=== PATIENT | male | born 1970 | race Caucasian/White ===

== ENCOUNTER → 2019-10-11 11:49 | Outpatient (BNVA) | payer OTHER, SELFPAY | PROVIDERS: Family Provider Family Medicine; Referring Provider Nurse Practitioner; Visit Provider Specialist | DX: M25.561 Pain in right knee (principal) | CPT/HCPCS: 73560; 73565 ==

== ENCOUNTER 2020-01-08 10:34 | Outpatient (CLI) | payer OTHER, SELFPAY ==
--- NOTE | 2020-01-08 11:05 | MR_ITS ---
WS: [id number] MRI RIGHT KNEE NONCONTRAST TECHNIQUE: Axial PD, coronal PD fat sat, coronal PD, sagittal PD, and sagittal PD fat-sat images obta ined. CLINICAL INFORMATION: CHRONIC PAIN OF RIGHT KNEE COMPARISON: Comparison March 09, 2017 FINDINGS: Distal quadriceps and patella tendons are intact. Anterior and posterior cruciate ligaments appear in tact. Small suprapatellar effusion. Small lobulated popliteal cyst measuring 1.3 x 0.8 x 3.1 CM. Principal Archaeologist evan thinning of the lateral meniscus which otherwise appears unremarkable. More advanced chronic thin loreta of the medial meniscus with chronic intrasubstance signal abnormality. No acute appearing menisc al tears. Degenerative subchondral edema along the anterior medial tibial plateau. 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 Advanced chondromalacia patella with a small amount of subchondral edema. Me dial and lateral collateral ligaments appear intact. MR/MR knee RT wo con* [id number] IMPRESSION: 1. Anterior and posterior cruciate ligaments are intact. 2. Chronic thinning of both the medial and lateral meniscus worse involving th e medial meniscus with chronic intrasubstance signal abnormality. No acute appe aring meniscal tears. 3. Advanced chondromalacia patella progressed from 2017 with subchondral edema . 4. Small joint effusion. 5. Moderate chondromalacia involving the medial and lateral joint compartments appears progressed since 2017. 6. Small amount of degenerative subchondral edema along the anteromedial tibia l plateau. 7. Small popliteal cyst as described above.
== END 2020-01-08 10:35 | disposition home or self-care (01) ==
LOC: RADWPI 10:42
PROVIDERS: Family Provider Family Medicine; PCP Nurse Practitioner; Visit Provider Specialist
DX: G89.29 Other chronic pain (principal); M22.41 Chondromalacia patellae, right knee; M25.461 Effusion, right knee; R60.9 Edema, unspecified; M71.21 Synovial cyst of popliteal space [Baker], right knee
CPT/HCPCS: 73721

== ENCOUNTER 2021-04-08 07:26 | Outpatient (CLI) | payer OTHER, SELFPAY ==
[2021-04-08 07:48] VITALS: BP 170/89; PULSE 67; RESP 18; TEMP 36.7; O2SAT 99
[2021-04-08 08:09] VITALS: BP 137/90; PULSE 65; RESP 14; O2SAT 95
[2021-04-08 09:25] VITALS: BP 136/85; PULSE 62; RESP 16; TEMP 36.8; O2SAT 96
== END 2021-04-08 07:27 | disposition home or self-care (01) ==
LOC: OPS 07:32
PROVIDERS: PCP Nurse Practitioner; Visit Provider Nurse Practitioner
DX: U07.1 COVID-19 (principal)
CPT/HCPCS: 96365

== ENCOUNTER → 2021-04-30 10:58 | Outpatient (BNVA) | payer OTHER, SELFPAY | PROVIDERS: PCP Nurse Practitioner; Visit Provider Internal Medicine Rheumatology | DX: M15.9 Polyosteoarthritis, unspecified (principal); Z79.899 Other long term (current) drug therapy; Z11.59 Encounter for screening for other viral diseases; Z11.1 Encounter for screening for respiratory tuberculosis; Z71.89 Other specified counseling; Z87.891 Personal history of nicotine dependence | CPT/HCPCS: 99204 ==

== ENCOUNTER → 2021-05-27 13:45 | Outpatient (BNVA) | payer OTHER, SELFPAY | PROVIDERS: PCP Nurse Practitioner; Visit Provider Internal Medicine Rheumatology | DX: M19.90 Unspecified osteoarthritis, unspecified site (principal); Z11.59 Encounter for screening for other viral diseases; Z79.899 Other long term (current) drug therapy; Z11.1 Encounter for screening for respiratory tuberculosis | CPT/HCPCS: 36415; 80076; 82306; 82565; 85025; 85651; 86140; 86200; 86480; 86704; 86803; 87340 ==

== ENCOUNTER → 2021-06-15 09:08 | Outpatient (BNVA) | payer OTHER, SELFPAY | PROVIDERS: PCP Nurse Practitioner; Visit Provider Internal Medicine Rheumatology | DX: M15.9 Polyosteoarthritis, unspecified (principal); Z79.899 Other long term (current) drug therapy; Z71.89 Other specified counseling; Z87.891 Personal history of nicotine dependence | CPT/HCPCS: 99214 ==

== ENCOUNTER 2021-07-16 06:51 | Outpatient (CLI) | payer OTHER, SELFPAY ==
--- NOTE | 2021-07-16 07:15 | USCV_ITS ---
Fredy Rebollar Age: 50 Gender: M : 1970 Exam Date: 07/16/2021 07:07 Ordering Phys: Sandy Johns MD ([email or web address]) Technologist: Exam Location: [facility] [place] Indication: PRIMARY HTN Aortic Velocity @ SMA (cm/s) 131 RIGHT KIDNEY LEFT KIDNEY Velocity (cm/s) Velocity (cm/s) Sys/Myrick Sys/Myrick Resistive Index Resistive Index 121.8 / 32.7 0.73 Proximal Renal Artery 56.2 / 20.0 0.64 98.5 / 25.5 0.74 Mid Renal Artery 60.1 / 18.9 0.69 70.4 / 25.5 0.64 Distal Renal Artery 54.5 / 17.2 0.68 71.2 / 16.7 0.77 Hilar 62.4 / 24.4 0.61 42.2 / 12.3 0.71 Upper Pole 44.5 / 18.9 0.58 58.9 / 17.6 0.70 Mid Pole 24.4 / 6.5 0.73 55.4 / 19.3 0.65 Lower Pole 44.5 / 12.0 0.73 0.90 Renal Aortic Ratio 0.46 Accleration Index (cm/sec2) 1513.0 Hilar 857.00 0 1286.0 Upper Pole 770.00 0 1696.0 Mid Pole 1053.0 0 0 1821.0 Lower Pole 458.00 0 122.7 Kidney Length (mm) 111.9 CONCLUSIONS Grayscale and duplex color Doppler of the kidneys. The duplex Doppler waveforms for both main renal arteries and segmental renal arteries appear within normal limits. No evidence of tardus parvus waveforms. The bilateral main and segmental renal arteries are patent. No significant renal artery stenosis. Nathaniel George MD (Electronically Signed) Final Date: 16 July 2021 13:34 S
== END 2021-07-16 06:52 | disposition home or self-care (01) ==
LOC: US 06:53
PROVIDERS: PCP Nurse Practitioner; Visit Provider Internal Medicine Cardiovascular Disease
DX: I10 Essential (primary) hypertension (principal)
CPT/HCPCS: 93975

== ENCOUNTER → 2021-12-21 11:08 | Outpatient (BNVA) | payer OTHER, SELFPAY | PROVIDERS: PCP Nurse Practitioner; Visit Provider Internal Medicine Rheumatology | DX: M06.041 Rheumatoid arthritis without rheumatoid factor, right hand (principal); M06.042 Rheumatoid arthritis without rheumatoid factor, left hand; Z79.899 Other long term (current) drug therapy; Z71.89 Other specified counseling | CPT/HCPCS: 99214 ==

== ENCOUNTER → 2021-12-28 13:06 | Outpatient (BNVA) | payer OTHER, SELFPAY | PROVIDERS: PCP Nurse Practitioner; Visit Provider Internal Medicine Cardiovascular Disease | DX: I10 Essential (primary) hypertension (principal); F17.290 Nicotine dependence, other tobacco product, uncomplicated | CPT/HCPCS: 99213 ==

== ENCOUNTER → 2022-01-26 10:10 | Outpatient (BNVA) | payer OTHER, SELFPAY | PROVIDERS: PCP Nurse Practitioner; Visit Provider Nurse Practitioner Family | DX: I10 Essential (primary) hypertension (principal); F17.290 Nicotine dependence, other tobacco product, uncomplicated | CPT/HCPCS: 99213 ==

== ENCOUNTER → 2022-04-13 10:20 | Outpatient (BNVA) | payer OTHER, SELFPAY | PROVIDERS: PCP Nurse Practitioner; Visit Provider Internal Medicine Rheumatology | DX: M06.041 Rheumatoid arthritis without rheumatoid factor, right hand (principal); M06.042 Rheumatoid arthritis without rheumatoid factor, left hand; I10 Essential (primary) hypertension; Z71.89 Other specified counseling; Z79.899 Other long term (current) drug therapy | CPT/HCPCS: 99214 ==

== ENCOUNTER → 2022-07-05 14:32 | Outpatient (BNVA) | payer OTHER, SELFPAY | PROVIDERS: PCP Nurse Practitioner; Visit Provider Internal Medicine Rheumatology | DX: M06.041 Rheumatoid arthritis without rheumatoid factor, right hand (principal); M06.042 Rheumatoid arthritis without rheumatoid factor, left hand; Z79.899 Other long term (current) drug therapy; Z71.89 Other specified counseling | CPT/HCPCS: 99214 ==

== ENCOUNTER → 2022-07-26 10:37 | Outpatient (BNVA) | payer OTHER, SELFPAY | PROVIDERS: PCP Nurse Practitioner; Visit Provider Nurse Practitioner Family | DX: I10 Essential (primary) hypertension (principal) | CPT/HCPCS: 99213 ==

== ENCOUNTER → 2023-04-20 12:50 | Outpatient (BNVA) | payer OTHER, SELFPAY | PROVIDERS: PCP Nurse Practitioner; Referring Provider Nurse Practitioner; Visit Provider Dermatology | DX: L82.1 Other seborrheic keratosis (principal); D22.5 Melanocytic nevi of trunk; D22.39 Melanocytic nevi of other parts of face; L73.8 Other specified follicular disorders; L81.4 Other melanin hyperpigmentation; L57.3 Poikiloderma of Civatte; F17.210 Nicotine dependence, cigarettes, uncomplicated | CPT/HCPCS: 99203 ==

== ENCOUNTER 2023-07-11 09:55 | Emergency (ER) | payer OTHER, SELFPAY ==
[2023-07-11 10:20] VITALS: BP 162/99; PULSE 65; RESP 16; TEMP 36.7; O2SAT 98; BMI 34.0
--- NOTE | 2023-07-11 10:32 | CT_ITS ---
WS: [id number] CT ABDOMEN PELVIS TECHNIQUE: Noncontrast CT of the abdomen and pelvis with coronal and sagittal reformatted images. CLINICAL INFORMATION: R flank/abdominal pain COMPARISON: None. DLP: 986.[address] scans at [facility] use at least one of these dose optimization techniques: automated e xposure control; mA and/or kV adjustment per patient size (includes targeted exams where dose is matc hed to clinical indication); or iterative reconstruction. FINDINGS: Adrenal glands are normal. No hydronephrosis in either kidney. No obstructing renal or ureteral calcu li bilaterally. No hydronephrosis. Normal appendix in the RIGHT lower quadrant. Normal sigmoid colon. No evidence of high-grade small or large bowel obstruction. Fat-containing umbi lical hernia. Lung bases are well aerated. Noncontrast spleen is normal. Tiny esophageal hernia. Patc hy low-attenuation change in the liver likely due to fatty infiltration. This can be further evaluate d with ultrasound. Cholelithiasis. No gallbladder wall thickening or pericholecystic fluid. IMPRESSION: 1. No hydronephrosis in either kidney. No obstructing renal or ureteral calculi. 2. Normal appendix. No evidence of acute appendicitis. 3. Normal sigmoid colon. 4. Patchy attenuation in the liver likely due to geographic fatty infiltration. This can be further evaluated with ultrasound or contrast-enhanced CT abdomen pelvis. Recommend correlation with liver fu nction tests. 5. Cholelithiasis. No gallbladder wall thickening or pericholecystic fluid. 6. No other acute findings.
--- NOTE | 2023-07-11 10:34 | W.ED.BACK ---
HPI - Back Pain/Injury General: Chief Complaint: Abdominal Pain Stated Complaint: abd pain,urinary problems,va sent Time Seen by Provider: 07/11/23 10:24 Source: patient Mode of arrival: ambulatory Limitations: no limitations History of Present Illness: Patient is a nice 52-year-old male who [facility] Patient states approximately 3 days ago he began having pains to his right flank area. He states over time symptoms seem to radiate around into his abdomen. He at one point felt febrile. He states one evening he seemed to have some difficulty with defecation. He states he has never had any difficulty with urination, denies frequency, urgency, hesitancy, hematuria. Denies N/V. No prior history of nephroureterolithiasis. Patient states pain is minimal at this time but reports a high pain tolerance. MD elicited complaint: back pain Onset (ago): day(s) Timing: constant Severity: mild Similar Symptoms Previously: No Quality: sharp Location: right flank Radiation: abdomen Exacerbating factors: movement Relieving factors: none Associated symptoms: Reports abdominal pain, change in bowel habits (reported difficulty with BM for a day) and fever(s) (subjective-only present one evening); Deny chills, difficulty walking, dysuria, fatigue, hematuria, nausea, syncope, urinary urgency or vomiting Work related injury: No Review of Systems Const: Reports: fever(s) (subjective-only present one evening); Denies: chills, body aches, fatigue or malaise Card: Denies: chest pain, palpitations, edema, lightheadedness, syncope or pre-syncope Resp: Denies: dyspnea GI: Reports: abdominal pain and change in bowel habits (reported difficulty with BM for a day); Denies: nausea, vomiting, hematemesis, diarrhea, GI cramping, hematochezia or melena : Reports: flank pain; Denies: difficulty urinating, dysuria, urinary frequency, urinary urgency, urinary hesitancy, hematuria, testicular pain, testicular mass or scrotal swelling Musc: Reports: back pain; Denies: neck pain, extremity pain, extremity swelling, joint pain or joint swelling Skin/Breast: Denies: rash Neuro: Denies: headache(s), numbness in extremities, weakness in extremities, sensory changes or difficulty walking PFSH ED PFSH: Medical History Bleeding hemorrhoids High risk medication use History of high blood pressure HTN (hypertension) Hypothyroidism Immunization counseling Seronegative rheumatoid arthritis of both hands Surgical History History of colonoscopy History of shoulder surgery Right 1990 Family History Other Hyperlipidemia Denies family history of Rheumatoid arthritis Diabetes Lupus CAD (coronary artery disease) Psoriatic arthritis Chronic kidney disease (CKD) Lung disease Cancer Hypertension Stroke Social History Smoking and tobacco/nicotine status: never used tobacco/nicotine Alcohol intake: current Alcohol intake frequency: holidays/special occasions only Substance/Drug Use: never Physical Exam Const: COMMON NORMALS: no acute distress, patient oriented x3, no limitations, healthy appearing, alert and well nourished Eye: COMMON NORMALS: no scleral icterus Resp: COMMON NORMALS: normal respiratory effort and clear to auscultation bilaterally AUSCULTATION: clear to auscultation bilaterally Cardio: COMMON NORMALS: regular rate and regular rhythm RATE: regular rate RHYTHM: regular rhythm GI: COMMON NORMALS: Normal to inspection, nondistended, normoactive bowel sounds present, Soft to palpation, No hepatosplenomegaly present and no masses INSPECTION: Yes normal to inspection AUSCULTATION: Yes normoactive bowel sounds PALPATION: Yes Soft to palpation, Yes Tenderness to palpation present (GI) (mild) Details: RLQ, No Guarding due to palpation present (GI), No Rigid due to palpation and Yes No hepatosplenomegaly present : BLADDER/KIDNEY EXAM: Yes CVA tenderness on the right (mild) Back/Pelvis: COMMON NORMALS: thoracic and lumbar spine normal to inspection, no thoracic nor lumbar tenderness and thoraco-lumbar ROM normal GENERAL BACK: Yes CVA tenderness BACK IMAGE (MALE): 1. TTP Extremity: COMMON NORMALS: normal to inspection GENERAL: Yes normal exam except as noted Neuro: FELISHA COMA SCALE: document GCS findings Lott coma scale eye opening: Spontaneous Lott coma scale verbal response: Orientated Felisha coma scale motor response: Obey commands Felisha coma scale total score: 15 COMMON NORMALS: patient oriented x3, moves all extremities, no focal motor deficits, no sensory deficits noted and gait normal SENSORIUM/ORIENTATION: Yes alert Skin: COMMON NORMALS: no rashes or lesions noted GENERAL SKIN EXAM: no rashes or lesions noted Course Vital Signs: Vital signs: Vital Signs Temperature 98.1 F 07/11/23 10:20 Pulse Rate 65 07/11/23 10:20 Respiratory Rate 16 07/11/23 10:20 Blood Pressure 162/99 07/11/23 10:20 Pulse Oximetry 98 07/11/23 10:20 Oxygen Delivery Me thod Room Air 07/11/23 10:20 MDM - Back Pain/Injury Medical Decision Making Patient appearing in no acute distress. Vital signs are stable. Blood work overall is unremarkable. UA is clear. CT scan is essentially normal. Incidental findings of a small patchy attenuation in his liver most likely due to fatty infiltration. I discussed findings with Dr. George who stated ultrasound of his liver could be ordered on a non-emergent basis. He has normal liver function tests. Cholelithiasis present but no gallbladder wall thickening or pericholecystic fluid. Again LFTs are normal. He has no RUQ tenderness. Patient made aware of findings and plan. At this point I think we have ruled out any emergent or life-threatening etiologies to patient's symptoms. [facility] Return to ED precautions given. Labs 07/11/23 10:32 07/11/23 10:32 Laboratory Results WBC 6.54 10^3/uL (3.29-11.43) 07/11/23 10:32 RBC 5.04 10^6/uL (3.85-5.65) 07/11/23 10:32 Hgb 14.60 g/dL (11.27-16.99) 07/11/23 10:32 Hct 42.6 % (37-53) 07/11/23 10:32 MCV 84.5 fl (82-101) 07/11/23 10:32 MCH 29.0 pg (27-33) 07/11/23 10:32 MCHC 34.3 g/dL (30-55) 07/11/23 10:32 RDW 12.2 % (12.1-15.1) 07/11/23 10:32 Plt Count 259 10^3/cmm (157-399) 07/11/23 10:32 MPV 11.6 fL (7.4-10.4) H 07/11/23 10:32 Neut % (Auto) 53.4 % 07/11/23 10:32 Lymph % (Auto) 32.9 % 07/11/23 10:32 [place] % (Auto) 9.6 % 07/11/23 10:32 Eos % (Auto) 3.1 % 07/11/23 10:32 Baso % (Auto) 0.8 % 07/11/23 10:32 Neut # (Auto) 3.50 10^3/uL (1.8-7.7) 07/11/23 10:32 Lymph # (Auto) 2.2 10^3/uL (0.8-4.8) 07/11/23 10:32 [place] # (Auto) 0.6 10^3/uL (0.2-0.9) 07/11/23 10:32 Eos # (Auto) 0.2 10^3/uL (0.0-0.8) 07/11/23 10:32 Baso # (Auto) 0.1 10^3/uL (0.0-0.1) 07/11/23 10:32 Nucleated RBC % (auto) 0 % 07/11/23 10:32 Nucleated RBCs # 0.0 /100WBC 07/11/23 10:32 Sodium 138 mmol/L (136-145) 07/11/23 10:32 Potassium 3.4 mmol/L (3.5-5.1) L 07/11/23 10:32 Chloride 101 mmol/L (98-107) 07/11/23 10:32 Carbon Dioxide 28 mmol/L (22-29) 07/11/23 10:32 Anion Gap 12.4 (5-19) 07/11/23 10:32 BUN 8 mg/dL (6-20) 07/11/23 10:32 Creatinine 1.1 mg/dL (0.7-1.2) 07/11/23 10:32 GFR Calculation 70.0 mL/min (90-130) L 07/11/23 10:32 Glucose 96 mg/dL (65-115) 07/11/23 10:32 Calculated Osmolality 284 mOsm/kg (285-295) L 07/11/23 10:32 Calcium 9.4 mg/dL (8.5-10.5) 07/11/23 10:32 Total Bilirubin 0.7 mg/dL (0.15-1.2) 07/11/23 10:32 AST 26 U/L (0-40) 07/11/23 10:32 ALT 39 U/L (0-41) 07/11/23 10:32 Alkaline Phosphatase 99 U/L (40-130) 07/11/23 10:32 Total Protein 7.6 g/dL (6.6-8.7) 07/11/23 10:32 Albumin 4.4 g/dL (3.5-5.2) 07/11/23 10:32 Globulin 3.2 g/dL (1.3-4.6) 07/11/23 10:32 Lipase 17 U/L (13-60) 07/11/23 10:32 Urine Color Straw (Yellow) 07/11/23 10:50 Urine Appearance Clear (CLEAR) 07/11/23 10:50 Urine pH 7 (5-7) 07/11/23 10:50 Ur Specific [place] 1.000 (1.005-1.030) L 07/11/23 10:50 Urine Protein Neg (Negative) 07/11/23 10:50 Urine Glucose (UA) Norm (Normal) 07/11/23 10:50 Urine Ketones Negative (Negative) 07/11/23 10:50 Urine Blood Neg (Negative) 07/11/23 10:50 Urine Nitrate Negative (Negative) 07/11/23 10:50 Urine Bilirubin Neg (Negative) 07/11/23 10:50 Urine Urobilinogen Neg mg/dL (Negative) 07/11/23 10:50 Ur Leukocyte Esterase Negative (Negative) 07/11/23 10:50 All radiology interpretation(s) finalized by discharge Discharge Plan Discharge Patient Disposition: Home Clinical Impression: Back pain Qualifiers: Back pain location: back pain in other location Chronicity: acute Qualified Code(s): M54.9 - Dorsalgia, unspecified Condition: Stable Prescriptions: No Action Proair Digihaler 90 mcg/actuation aero powdr breath act w/sensor 90 mcg INHALATION Q6H PRN (Reason: Shortness Of Breath) levothyroxine 150 mcg capsule 150 mcg PO DAILY amlodipine 10 mg tablet 10 mg PO DAILY losartan-hydrochlorothiazide 100-12.5 mg tablet 1 tab PO QAM Discharge Orders: Discharge ED (Routine); Ordered 07/11/23 Ordered By: Adriana Crowley Referrals: Светлана Webb FNP [Primary Care Provider] - Activity Restrictions/Additional Instructions: As we discussed we did not find an exact etiology to your symptoms today. Her blood work shows a normal white count. Remainder of blood work is unremarkable. Your UA was clear. CT scan is essentially normal apart from the incidental findings that we discussed. There was a small patchy attenuation in the liver most likely secondary to fatty infiltration. Radiologist recommended ultrasound on an outpatient basis. Your liver function tests on blood work were normal. CT scan also showing gallstones. There was no secondary findings to suggest cholecystitis. You may return to the emergency department for onset of right upper quadrant abdominal pain, repetitive episodes of vomiting or diarrhea, fevers, yellowing to your skin or eyes, or any other concerns you may have. Otherwise [facility]. I hope you begin to feel better soon. Coding Level of Care Code ED External Relations Manager for [facility] [place]
--- NOTE | 2023-07-11 10:37 | PC.PHAR ---
[facility]XED [facility] 10:30AM 07/11/23
[2023-07-11 10:39] LABS: Basophils # 0.1 10^3/uL (0.0-0.1); Basophils % 0.8 %; Eosinophils # 0.2 10^3/uL (0.0-0.8); Eosinophils % 3.1 %; Hematocrit 42.6 % (37-53); Lymphocytes # 2.2 10^3/uL (0.8-4.8); Lymphocytes % 32.9 %; Mean Corpuscular HGB Conc 34.3 g/dL (30-55); Mean Corpuscular Volume 84.5 fl (82-101); Mean Platelet Volume 11.6 fL (7.4-10.4); Monocytes # 0.6 10^3/uL (0.2-0.9); Monocytes % 9.6 %; Neutrophils % 53.4 %; Nucleated Red Blood Cells % 0 %; Platelet Count 259 10^3/cmm (157-399); Red Blood Count 5.04 10^6/uL (3.85-5.65); Red Cell Distribution Width 12.2 % (12.1-15.1); White Blood Count 6.54 10^3/uL (3.29-11.43)
[2023-07-11 10:56] LABS: Alanine Aminotransferase 39 U/L (0-41); Albumin Level 4.4 g/dL (3.5-5.2); Alkaline Phosphatase 99 U/L (40-130); Anion Gap 12.4 (5-19); Aspartate Amino Transferase 26 U/L (0-40); Blood Urea Nitrogen 8 mg/dL (6-20); Calcium 9.4 mg/dL (8.5-10.5); Carbon Dioxide 28 mmol/L (22-29); Chloride 101 mmol/L (98-107); Globulin 3.2 g/dL (1.3-4.6); Glucose 96 mg/dL (65-115); Lipase 17 U/L (13-60); Osmolality Calculated 284 mOsm/kg (285-295); Potassium 3.4 mmol/L (3.5-5.1); Sodium 138 mmol/L (136-145); Total Bilirubin 0.7 mg/dL (0.15-1.2); Total Protein 7.6 g/dL (6.6-8.7)
[2023-07-11 11:05] LABS: Add Urine Microscopic? NO; Charge for UA Resulting for Rev
[2023-07-11 11:12] LABS: Bilirubin Urine Neg (Negative); Blood Urine Neg (Negative); Glucose Urine UA Norm (Normal); Ketones Urine Negative (Negative); Leukocyte Esterase Urine Negative (Negative); Nitrate Urine Negative (Negative); Protein Urine Neg (Negative); Urine Appearance Clear (CLEAR); Urine Color Straw (Yellow); Urobilinogen Urine Neg (Negative); pH Urine 7 (5-7)
== END 2023-07-11 12:00 | disposition home or self-care (01) ==
PROVIDERS: Emergency Provider Physician Assistant; PCP Nurse Practitioner
DX: M54.9 Dorsalgia, unspecified (principal); I10 Essential (primary) hypertension
CPT/HCPCS: 74176; 80053; 81003; 83690; 85025; 99284

== ENCOUNTER → 2024-05-30 07:52 | Outpatient (BNVA) | payer OTHER, SELFPAY | PROVIDERS: PCP Nurse Practitioner; Referring Provider Nurse Practitioner; Visit Provider Surgery | DX: Z12.11 Encounter for screening for malignant neoplasm of colon (principal) | CPT/HCPCS: 99203; 99214 ==

== ENCOUNTER 2024-06-21 05:40 | Day surgery (SDC) | payer OTHER, SELFPAY ==
--- NOTE | 2024-06-21 06:00 | P.HPUD_ITS ---
Surgery/Procedure H&P Update DATE OF PROCEDURE: June 21, 2024 DATE H&P PERFORMED: 05/30/24 H&P UPDATE INFORMATION: I have reviewed H&P completed within last 30 days, I have examined patient prior to procedure, No changes to prior documentation and [place] [facility] indicated PLANNED PROCEDURE: Operation Date: 06/21/24 07:00 Proposed Procedures p Colonoscopy 38228, G0105, Z12.11(Not Applicable) - Clement Clayton MD
--- NOTE | 2024-06-21 06:00 | W.PM.OPSUD ---
Surgery/Procedure H&P Update DATE OF PROCEDURE: June 21, 2024 DATE H&P PERFORMED: 05/30/24 H&P UPDATE INFORMATION: I have reviewed H&P completed within last 30 days, I have examined patient prior to procedure, No changes to prior documentation and H&P is in [facility] [place] EMR on date indicated PLANNED PROCEDURE: Operation Date: 06/21/24 07:00 Proposed Procedures p Colonoscopy 48918, G0105, Z12.11(Not Applicable) - Clement Clayton MD
[2024-06-21 06:02] VITALS: BP 148/95; PULSE 66; RESP 16; TEMP 36.3; O2SAT 97; BMI 34.4
[2024-06-21] MEDS: sodium chloride 0.9% 1,000 ML 30 ML IV (06:15)
--- NOTE | 2024-06-21 06:58 | P.ANESASSM_ITS ---
Pre-Anesthetic Assessment Height/Weight: Height 1.78 m Weight 108.862 kg Temp Pulse Resp BP Pulse Ox O2 Del Method 97.3 F L 66 16 148/95 97 Room Air 06/21/24 06:02 06/21/24 06:02 06/21/24 06:02 06/21/24 06:02 06/21/24 06:02 06/21/24 06:02 Operation Date: 06/21/24 07:00 Proposed Procedures p Colonoscopy 12944, G0105, Z12.11(Not Applicable) - Clement Clayton MD Familial anesthetic complications: none Was Beta Radha taken within 24 hours: N/A Was Clonidine taken within 24 hours: N/A Last intake: Intake Last Liquid Date 06/20/24 Last Liquid Time 23:00 Last Solid Date 06/19/24 Last Solid Time 18:00 Last Intake: 22:00 Social No alcohol and No tobacco occasional cigar Exam alert and oriented x 3 Airway Submandibular: within normal limits Cervical ROM: within normal limits Mallampati: Class III Dentition: full History/ROS No significant history except as noted Pulmonary Asthma and Sleep Apnea CV/HEM Hypertension None reported Hepatic None reported GI None reported Metabolic Hyperlipidemia and Thyroid Disease [facility] [place] None reported Neuropsych None reported Anesthetic Plan ASA status: 3 Anesthesia: Anesthesia Evaluation, General and MAC Risk of > 500 ml blood loss (7ml/kg in children): No Medications/Allergies Home Medications Medication Instructions Recorded Confirmed Last Taken Type albuterol sulfate 90 mcg/actuation 90 mcg inhalation Q6H PRN 10/11/19 06/21/24 2 Weeks Ago History breath activated powder Shortness Of Breath ~06/05/24 inhaler,sensor (Proair Digihaler) levothyroxine 150 mcg capsule 150 mcg PO DAILY 04/30/21 06/21/24 06/21/24 History amlodipine 10 mg tablet 10 mg PO DAILY 07/26/22 06/21/24 06/21/24 History losartan 100 1 tab PO QAM 07/11/23 06/21/24 06/20/24 History mg-hydrochlorothiazide 12.5 mg tablet clonidine HCl 0.1 mg tablet 0.1 mg PO DAILY 06/19/24 06/21/24 06/20/24 History Allergies Allergy/AdvReac Type Severity Reaction Status Date / Time Penicillins Allergy Severe ALGY-Anaphy Verified 05/30/24 07:59 laxis aspartame Allergy Intermediate ADR-Vomitin Verified 05/30/24 07:59 g prochlorperazine Allergy Mild ALGY-Hives Verified 05/30/24 07:59 [From Compazine] Current Medications Generic Name Dose Route Start Last Admin Trade Name Freq PRN Reason Stop Dose Admin Sodium Chloride 1,000 mls @ 30 mls/hr 06/21/24 06:00 06/21/24 06:15 Sodium Chloride 0.9% IV 30 mls/hr .Q24H MAKEDA Administration PFSH Anesthesia Medical History Seronegative rheumatoid arthritis of both hands HTN (hypertension) Bleeding hemorrhoids Immunization counseling High risk medication use Hypothyroidism History of high blood pressure Surgical History History of shoulder surgery Right 1991 History of colonoscopy Family History Other Hyperlipidemia Denies family history of Rheumatoid arthritis Diabetes Lupus CAD (coronary artery disease) Psoriatic arthritis Chronic kidney disease (CKD) Lung disease Cancer Hypertension Stroke Social History Smoking and tobacco/nicotine status: never used tobacco/nicotine Alcohol intake: current Alcohol intake frequency: holidays/special occasions only Substance/Drug Use: never Data Anesthesia Cardiac Studies: No Data to Display
[2024-06-21 07:27] VITALS: BP 113/69; PULSE 61; RESP 16; TEMP 36.1; O2SAT 95
--- NOTE | 2024-06-21 07:33 | ANE.PACU2 ---
Inpatient post-anesthesia follow up: Airway intact: Yes Vital signs: Temperature 97.3 F Pulse Rate 66 Respiratory Rate 16 Blood Pressure 148/95 Pulse Oximetry 97 Oxygen Delivery Me thod Room Air Oxygen Flow Rate Fraction of Inspir ed Oxygen Hydration adequate: Yes Nausea and vomiting: No Pain level: 1 Mental status: Baseline
[2024-06-21 07:40] VITALS: BP 122/78; PULSE 62; RESP 18; O2SAT 97
[2024-06-21 07:50] VITALS: BP 118/83; PULSE 60; RESP 18; O2SAT 97
== END 2024-06-21 08:06 | disposition home or self-care (01) ==
PROVIDERS: PCP Nurse Practitioner; Visit Provider Surgery
PROC: 0DJD8ZZ Inspection of Lower Intestinal Tract, Via Natural or Artificial Opening Endoscopic (ICD-10-PCS; CPT 45378; principal; 2024-06-21 07:00)
DX: Z12.11 Encounter for screening for malignant neoplasm of colon (principal); K64.4 Residual hemorrhoidal skin tags; G47.30 Sleep apnea, unspecified; I10 Essential (primary) hypertension; E78.5 Hyperlipidemia, unspecified; E03.9 Hypothyroidism, unspecified
CPT/HCPCS: 45378; J2704; J7030

== ENCOUNTER 2025-06-10 07:51 | Outpatient (RCR) | payer OTHER, SELFPAY | END 2025-06-28 23:59 | disposition home or self-care (01) | LOC: SPT 07:51 | PROVIDERS: Visit Provider Nurse Practitioner | DX: M54.2 Cervicalgia (principal) | CPT/HCPCS: 97161 ==

== ENCOUNTER 2025-07-29 06:30 | Outpatient (RCR) | payer OTHER, SELFPAY | END 2025-08-28 23:59 | disposition home or self-care (01) | LOC: SPT 06:30 | PROVIDERS: Visit Provider Nurse Practitioner | DX: M54.2 Cervicalgia (principal) | CPT/HCPCS: 20560; 97110 ==